=== PATIENT | female | born 1975 | race Caucasian/White ===

== ENCOUNTER → 2017-06-07 | Outpatient (CLI) | payer OTHER ==
[2017-06-07 14:34] LABS: CONTROL LINE HPYORI INT CTR LINE PRESENT; H PYLORI QUALITATIVE IgG NEGATIVE (NEGATIVE)
[2017-06-07 14:43] LABS: TOTAL T3 103.8 NG/DL (60.0-181.0)
[2017-06-07 14:45] LABS: THYROXINE (T4) 13.7 UG/DL (4.5-12.0)
[2017-06-08 08:34] LABS: THYROGLOBULIN ANTIBODY 31.7 U/ML (<60.0); THYROID PEROXIDASE ANTIBODY < 28.0 U/ML (<60.0)
[2017-06-12 00:07] LABS: IGE RECEPTOR ABY 1 1.2 (<10)
== END ==
LOC: M SMT 09:31
DX: L50.1 Idiopathic urticaria (principal); L50.3 Dermatographic urticaria
CPT/HCPCS: 84443

== ENCOUNTER → 2017-09-21 | Outpatient (CLI) | payer OTHER ==
[2017-09-21 14:18] LABS: THYROXINE (T4) 8.4 UG/DL (4.5-12.0)
== END ==
LOC: M SMT 09:36
DX: L50.1 Idiopathic urticaria (principal)
CPT/HCPCS: 84443

== ENCOUNTER → 2022-04-28 | Outpatient (CLI) | payer OTHER | LOC: M LABSMTC 08:49 | PROVIDERS: ATTEND Anesthesiology | DX: Z01.812 Encounter for preprocedural laboratory examination (principal); Z20.822 Contact with and (suspected) exposure to COVID-19 ==

== ENCOUNTER → 2022-05-03 | Day surgery (SDC) | payer OTHER ==
[~2022-05-03] VITALS: Ht 165.1 cm; Wt 80.6 kg
[~2022-05-03] MED LIST: LIDOCAINE 2% 100MG/5ML SDV (FOR ANES.) As Ordered ONE; NS 1,000 ML IV ONE; SIMETHICONE 40MG/0.6ML DROPS 30ML As Ordered ONE; propofoL 200 MG/20 ML VIAL As Ordered ONE
[2022-05-03 08:22] VITALS: BP 118/57
== END | disposition home or self-care (01) ==
LOC: M OPP 06:32
PROVIDERS: ATTEND Internal Medicine Gastroenterology
DX: Z12.11 Encounter for screening for malignant neoplasm of colon (principal); K64.0 First degree hemorrhoids; K29.60 Other gastritis without bleeding; K21.00 Gastro-esophageal reflux disease with esophagitis, without bleeding; Z91.048 Other nonmedicinal substance allergy status; Z87.891 Personal history of nicotine dependence